=== PATIENT | male | born 1960 | race Caucasian/White ===

== ENCOUNTER 2025-01-22 13:15 | Emergency (ER) | payer MEDICARE ==
[~2025-01-22] VITALS: Ht 177.8 cm; Wt 79.4 kg
[2025-01-22] MEDS ORDERED: Morphine Sulfate 4 MG/1 ML Injection IV ONE ×4 (15:25→21:55)
[2025-01-22] MEDS ORDERED: ACET500 PO (21:56)
[2025-01-22] MEDS ORDERED: OXYACE7.5T PO (21:56)
[2025-01-22] MEDS ORDERED: IBUP600 PO (21:56)
== END 2025-01-22 22:30 | disposition home or self-care (01) ==
LOC: ER 13:15
DX: S82.241A Displaced spiral fracture of shaft of right tibia, initial encounter for closed fracture (principal); S82.51XA Displaced fracture of medial malleolus of right tibia, initial encounter for closed fracture; S82.831A Other fracture of upper and lower end of right fibula, initial encounter for closed fracture; X50.1XXA Overexertion from prolonged static or awkward postures, initial encounter
CPT/HCPCS: 29505; 73610; 73700; 96374-59; 96376-59; 99284-25; J2270

== ENCOUNTER 2025-01-28 08:51 | Emergency (ER) | payer MEDICARE ==
[~2025-01-28] VITALS: Ht 175.3 cm; Wt 77.1 kg
[~2025-01-28 08:51] MED LIST: ACET500 PO; IBUP600 PO; OXYACE7.5T PO
== END 2025-01-28 10:13 | disposition home or self-care (01) ==
LOC: ER 08:51
DX: S82.241D Displaced spiral fracture of shaft of right tibia, subsequent encounter for closed fracture with routine healing (principal)
CPT/HCPCS: 99282

== ENCOUNTER 2025-02-13 06:21 | Day surgery (SDC) | payer OTHER, MEDICARE ==
[~2025-02-13] VITALS: Ht 177.8 cm; Wt 88.1 kg
[~2025-02-13 06:21] MED LIST changes: +Lactated Ringer's 1,000 ML IV ONE
[2025-02-13] MEDS ORDERED: Bupivacaine 0.5% W/EPI 1:200000 SDV 30 ML Vial ONE (06:37)
[2025-02-13] MEDS ORDERED: CeFAZolin Sodium 2,000 MG VIAL ONE (06:59)
[2025-02-13] MEDS ORDERED: propofoL 20 ML IV ONE (07:04)
[2025-02-13] MEDS ORDERED: Midazolam HCl 1MG / ML 2ML Vial ONE (07:05)
[2025-02-13] MEDS ORDERED: Midazolam HCL 1 MG/ML 5MLVIAL ONE (07:05)
[2025-02-13] MEDS ORDERED: FentaNYL Citrate 50 MCG/ML 2 ML Injection ONE ×4 (07:06→10:40)
[2025-02-13] MEDS ORDERED: Lactated Ringer's 1,000 ML IV ONE ×2 (07:11→10:03)
--- NOTE | 2025-02-13 07:25 | NUR ---
02/13/25 [address] KENDRICK ABOUT PT TAKING IBUPROFEN YESTERDAY. DR KENDRICK REPORT OK TO PROCEDE.
[2025-02-13] MEDS ORDERED: Ketorolac Tromethamine 30mg Vial ONE (07:34)
[2025-02-13] MEDS ORDERED: Dexamethasone Sod Phos 10 MG/ML 1ML VIAL ONE (07:34)
[2025-02-13] MEDS ORDERED: Ondansetron HCl 2 MG / ML 2ML Vial ONE (07:34)
--- NOTE | 2025-02-13 08:41 | NUR ---
02/13/[address] OUT OF THE ROOM AT 0820.
[2025-02-13] MEDS ORDERED: HYDROmorphone HCl/Pf 1MG SYR ONE (10:59)
--- NOTE | 2025-02-13 11:15 | NUR ---
02/13/25 1115 Azra Thomas PT STATED THAT HE IS IN A LOT PAIN. PT GROANING, BREATHING HEAVILY. THIS RN REMINDED PT TO TAKE SOME NICE DEEP BREATHES. PAIN MEDICATION GIVEN: 100MCG OF FENTANYL. 1MG DILAUDID GIVEN VIA IV, PUSHED SLOWLY. PT STATED THAT HIS PAIN GOT DOWN TO A 8/10. IT WAS ORIGINALLY A 10/10. PT'S BP IS IMPROVING.
[2025-02-13] MEDS ORDERED: OxyCODONE HCL 5 MG TAB ONE (11:51)
== END 2025-02-13 12:45 | disposition home or self-care (01) ==
LOC: ORSCSDS 06:21
PROVIDERS: Orthopaedic Surgery
PROC: 0QSG06Z Reposition Right Tibia with Intramedullary Internal Fixation Device, Open Approach (ICD-10-PCS; principal; 2025-02-13 07:30)
DX: S82.201A Unspecified fracture of shaft of right tibia, initial encounter for closed fracture (principal); W01.0XXA Fall on same level from slipping, tripping and stumbling without subsequent striking against object, initial encounter
CPT/HCPCS: A9270; C1713; C1769; C1889; J0690; J1100; J1171; J1885; J2250; J2405; J2704; J3010; J7120

== ENCOUNTER 2025-09-21 13:23 | Emergency (ER) | payer MEDICARE | END 2025-09-21 16:17 | disposition home or self-care (01) | LOC: ER 13:23 | DX: M25.571 Pain in right ankle and joints of right foot (principal); Z87.81 Personal history of (healed) traumatic fracture ==